=== PATIENT | female | born 1965 | race Caucasian/White ===

== ENCOUNTER → 2024-03-15 13:59 | Outpatient (REF) | payer OTHER, SELFPAY | LOC: HWRAD 13:59 | PROVIDERS: ATTENDING PHYSICIAN Family Medicine; FAMILY PHYSICIAN Physician Assistant | DX: Z87.442 Personal history of urinary calculi (principal); R10.9 Unspecified abdominal pain; R91.1 Solitary pulmonary nodule | CPT/HCPCS: 71250; 76770 ==

== ENCOUNTER → 2024-04-24 11:22 | Outpatient (REF) | payer OTHER, SELFPAY | LOC: RAD 11:22 | PROVIDERS: ATTENDING PHYSICIAN Surgery; FAMILY PHYSICIAN Physician Assistant | DX: N13.2 Hydronephrosis with renal and ureteral calculous obstruction (principal) | CPT/HCPCS: 74018 ==

== ENCOUNTER 2024-11-12 15:34 | Emergency (ER) | payer OTHER, SELFPAY ==
[2024-11-12 15:38] VITALS: BP 107/68
[2024-11-12 16:08] LABS: Urine Albumin Negative (Neg - Trace); Urine Bilirubin Negative (Negative); Urine Character Clear (Clear); Urine Color Yellow; Urine Glucose Negative (Negative); Urine Ketone Negative (Negative); Urine Leukocyte Trace (Negative); Urine Nitrite Negative (Negative); Urine Occult Blood 2+ (Negative); Urine Specific Gravity 1.025 (<1.030); Urine Urobilinogen Negative (Neg - 1+)
[2024-11-12 16:10] LABS: % Basophils 1.1 % (0-2); % Immature Granulocytes 0.1 % (0-0.5); % Lymphocytes 20.8 % (20.5-51.1); % Monocytes 9.6 % (1.7-9.3); % Neutrophils 65.4 % (42.2-75.2); Absolute Basophils 0.1 10^3/uL (0-0.2); Absolute Eosinophils 0.2 10^3/uL (0-0.7); Absolute Lymphocytes 1.5 10^3/uL (1.2-3.4); Absolute Monocytes 0.7 10^3/uL (0.1-0.6); Absolute Neutrophils 4.6 10^3/uL (1.4-6.5); Hematocrit 41.4 % (37.0-47.0); Hemoglobin 13.9 g/dL (12.0-16.0); Mean Corp Hgb Conc. 33.6 g/dL (33.0-37.0); Mean Corpuscular Hgb 29.6 pg (27.0-31.0); Mean Corpuscular Volume 88.1 fL (81.0-99.0); Mean Platelet Volume 10.1 fL (7.4-10.4); Nucleated Red Blood Cells % 0 %; Platelet Count 248 10^3/uL (130-400); Red Cell Dist. Width 12.4 % (11.5-14.5)
[2024-11-12 16:16] LABS: ALT (SGPT) 19 U/L (0-35); AST (SGOT) 21 U/L (14-36); Albumin 4.8 g/dl (3.5-5.0); Alkaline Phosphatase 85 U/L (38-126); Blood Urea Nitrogen 21 mg/dl (7-17); Calcium 9.8 mg/dl (8.4-10.2); Carbon Dioxide 28 mmol/L (22-30); Chloride 98 mmol/L (98-107); Glucose 106 mg/dl (70-99); Lipase 234 U/L (23-300); Potassium 4.2 mmol/L (3.5-5.1); Sodium 137 mmol/L (135-145); Total Bilirubin 0.3 mg/dl (0.2-1.3); Total Protein 7.4 g/dl (6.3-8.2); eGFR > 60.00
--- NOTE | 2024-11-12 16:20 | ED.GENMED ---
ED Provider Triage
<Marbella Bustamante BANK EXAMINER - Last Filed: 11/12/24 16:23>
-
Patient seen by provider in Triage?: Seen in Triage
Attestation: A medical screening examination has been initiated by a qualified medical provider. Based on the assessment performed at this time, it has been determined that an emergent medical condition may exist and the patient has been informed
that further medical evaluation and possible additional diagnostic testing may be needed.
HPI: 59-year-old female with history of kidney stones presents with right side abdominal pain that was right flank pain. Denies fever or chills.
GENERAL: Alert , in no apparent distress
EYE: No visual abnormalities.
ENT: No visible abnormalities.
LUNGS: No acute respiratory distress
NEUROLOGICAL: Alert and oriented
SKIN: Skin intact. No visible changes.
MUSCULOSKELETAL: Moving extremities normally
PSYCH: Normal and appropriate interaction.
This is a medical evaluation conducted in person to initiate diagnostic evaluation and provide initial therapeutics. Please see further documentation by the treating clinician.
History of Present Illness
<Marbella Bustamante BANK EXAMINER - Last Filed: 11/12/24 16:23>
General
Chief Complaint: Abdominal Pain
Time Seen by Provider: 11/12/24 18:36
<ENA Bonner - Last Filed: 11/12/24 19:05>
General
Source: patient
Exam Limitations: none
History of Present Illness
History of Present Illness:
This is a 59 year old female that comes in with c/o right flank and abd pain. States that this started about 3pm today but that she has some irritation like a kidney stone this morning. States that she took a Flomax that she had at home. States that
she then became nauseated and lightheaded. States that she took Tylenol 1000mg at 8am today. Denies any fever, chills, chest pain, SOB, vomiting, diarrhea, headache, urinary burning.
Past History
<Marbella Bustamante BANK EXAMINER - Last Filed: 11/12/24 16:23>
Past History
ED Past Medical History: GERD
ED Past Surgical History: None
Social History
Tobacco: Non-smoker
Alcohol: Occasional
<ENA Bonner - Last Filed: 11/12/24 19:05>
Past History
ED Past Medical History: Psychiatric (Depression) and Other (Renal calculus, )
ED Past Surgical History: Cholecystectomy and Other (ERCP for common bile duct stone)
Social History
Tobacco: Former smoker
Drug: None
Personal:
Living: with family
Review of Systems
<ENA Bonner - Last Filed: 11/12/24 19:05>
Review of Systems
All Other Systems: ROS reviewed and negative except as documented in HPI and ROS
Constitutional: Reports no symptoms; Denies fever or chills
EENT: Reports no symptoms
Respiratory: Reports no symptoms; Denies cough or trouble breathing
Cardiac: Reports no symptoms; Denies chest pain
ABD/GI: Reports abdominal pain and nausea; Denies vomiting or diarrhea
: Reports flank pain (right sided)
Musculoskeletal: Reports no symptoms
Skin: Reports no symptoms
Neurological: Reports other (Lightheaded); Denies dizzy or headache
Psychiatric: Reports no symptoms
Phy Exam
<ENA Bonner - Last Filed: 11/12/24 19:05>
General Physical Exam
General Presentation: no apparent distress
General age: appears stated age
General Skin: warm and dry
General Habitus: normal
General Mental: alert
General Hydration: appears well hydrated
ENT Exam
ENT Exam: TM's normal, pharynx normal and neck supple
Eye Exam
Eye Exam: EOMI
Cardiovascular Exam
Cardiovascular Exam: regular rate/rhythm, no edema, no murmur and normal peripheral pulses
Pulmonary Exam
Pulmonary Exam: lungs clear, no respiratory distress, no rales, chest non tender, no crackles, no rhonchi, no wheezing and no cough
Gastrointestinal Exam
Gastrointestinal Exam: normal bowel sounds, non tender, soft, no organomegaly, no pulsatile mass, non distended and no cva tenderness
Musculoskeletal Exam
Musculoskeletal Exam: full ROM and no edema
Skin Exam
Skin Exam: normal color, warm/dry, no rash and no petechia
Psychiatric Exam
Psychiatric Exam: normal mood/affect
Course
<Marbella Bustamante NP - Last Filed: 11/12/24 16:23>
Orders/Labs/Results
Orders:
Orders
11/12/24 15:53
Complete Blood Count/With Diff Urgent
Comprehensive Metabolic Panel Urgent
Lipase Urgent
Urinalysis Reflex To Culture Urgent
Date Specimen was Collected: 11/12/24
Time Specimen was Collected: 15:42
Urine Microscopic Reflex Cult Urgent
11/12/24 16:23
CT Abd/pel Without Iv Or Oral Urgent
Comment:
Reason For Exam: R flank and abd pain, hx stones
11/12/24 18:47
Oxycodone [Roxicodone] 10 mg PO NOW STA
Abnormal Lab Results
11/12/24
15:53
Absolute Monos (auto) 0.7 H 10^3/uL
(0.1-0.6)
Monocytes % 9.6 H %
(1.7-9.3)
BUN 21 H mg/dl
(7-17)
Glucose 106 H mg/dl
(70-99)
Ur Occult Blood Reflex 2+ A
(Negative)
Leukocyte Esterase Rfl Trace A
(Negative)
Urine RBC 7-10 A /HPF
(0-2)
Urine Bacteria (Reflex) Few A
(Negative)
11/12/24 15:53
11/12/24 15:53
Vital Signs
Initial and Last Documented VS:
Initial Vital Signs
Temp Pulse Resp BP Pulse Ox
98.0 F 71 16 107/68 100
11/12/24 15:38 11/12/24 15:38 11/12/24 15:38 11/12/24 15:38 11/12/24 15:38
Last Documented Vital Signs
Temp Pulse Resp BP Pulse Ox
98.0 F 71 16 107/68 100
11/12/24 15:38 11/12/24 15:38 11/12/24 15:38 11/12/24 15:38 11/12/24 15:38
<ENA Bonner - Last Filed: 11/12/24 19:05>
Orders/Labs/Results
Orders:
Orders
11/12/24 15:53
Complete Blood Count/With Diff Urgent
Comprehensive Metabolic Panel Urgent
Lipase Urgent
Urinalysis Reflex To Culture Urgent
Date Specimen was Collected: 11/12/24
Time Specimen was Collected: 15:42
Urine Microscopic Reflex Cult Urgent
11/12/24 16:23
CT Abd/pel Without Iv Or Oral Urgent
Comment:
Reason For Exam: R flank and abd pain, hx stones
11/12/24 18:47
Oxycodone [Roxicodone] 10 mg PO NOW STA
Abnormal Lab Results
11/12/24
15:53
Absolute Monos (auto) 0.7 H 10^3/uL
(0.1-0.6)
Monocytes % 9.6 H %
(1.7-9.3)
BUN 21 H mg/dl
(7-17)
Glucose 106 H mg/dl
(70-99)
Ur Occult Blood Reflex 2+ A
(Negative)
Leukocyte Esterase Rfl Trace A
(Negative)
Urine RBC 7-10 A /HPF
(0-2)
Urine Bacteria (Reflex) Few A
(Negative)
11/12/24 15:53
11/12/24 15:53
Slight Dehydration. Glucose nonfasting, Urine negative for infection but positive for blood, Lipase normal at 234
Vital Signs
Initial and Last Documented VS:
Initial Vital Signs
Temp Pulse Resp BP Pulse Ox
98.0 F 71 16 107/68 100
11/12/24 15:38 11/12/24 15:38 11/12/24 15:38 11/12/24 15:38 11/12/24 15:38
Last Documented Vital Signs
Temp Pulse Resp BP Pulse Ox
98.0 F 71 16 107/68 100
11/12/24 15:38 11/12/24 15:38 11/12/24 15:38 11/12/24 15:38 11/12/24 15:38
<ENA Bonner - Last Filed: 11/12/24 19:05>
MDM/Problems Addressed
Differential Diagnosis Includes:
Renal calculus
MDM/Problems Addressed:
This is a 59 year old female that comes in with c/o right flank and abd pain. States that she felt there was a little irritation in the morning but she started with pain around 3pm.
Will check labs and get CT scan. Will medicated for pain and nausea.
Explained to patient that she has a 3mm stone at the UVJ. Encouraged patient to increase her water intake to 8-8oz glasses daily. Patient can strain her urine. Use Tylenol 1000mg every 6 hours for pain and will give a narcotic pain medication as
patient states that she can't take Ibuprofen. Will also give a prescription for Zofran and have patient follow up with the Urologist. Patient to return for any concerns.
Chronic conditions affecting care:
Renal calculus
Acute Exacerbation and/or Progression of Chronic Illness:
Renal calculus
<ENA Bonner - Last Filed: 11/12/24 19:05>
*Radiology
Radiology exam reviewed: radiology read reviewed (CT- Approximate 3mm calculus at the right ureterovesical junction with mild right hydroureteronephrosis. Small bilateral nonobstructing renal calculi. Small bilateral low-attenuation renal lesions
only the larger of which can be confirmed as simple cyst. Small simple parapelvic left renal cysts ) and all reviewed NAD by ED Provider (CT cont- also noted. Unremarkable appendix. Prior cholecystectomy )
*Pulse Oximetry
Patient hypoxic: no
*EKG
Interpreted by ED Provider?: NA
Rate: EKG- N/A
*Shop Mechanic Interpretation
Rate: Shop Mechanic- N/A
*Critical Care Note
Total Time (30-74mins, 75-104mins- exclusive of procedures): Not Applicable
ED Attending Note
<Marbella Bustamante NP - Last Filed: 11/12/24 16:23>
-
Portions of this chart may have been created with voice recognition software.� Occasional wrong word or��sound alike� substitutions may have occurred due to the inherent limitations of voice recognition software.
Discharge Plan
Departure
Patient Disposition: Home (Routine Discharge)
Date of Disposition: 11/12/24
Time of Disposition: 18:58
Patient with high blood pressure during this ER visit?: No
Condition: Good
Covid-19: Not Applicable
Discharge Problem:
Renal calculus, right
Instructions: Renal Colic (DC), How to Strain Your Urine
Prescriptions:
New
tamsulosin [Flomax] 0.4 mg capsule
0.4 mg PO HS Qty: 7 0RF
ondansetron 4 mg tablet,disintegrating
4 mg PO Q8H PRN (Reason: nausea and vomiting) Qty: 7 0RF
oxycodone 5 mg capsule
5 mg PO Q6H PRN (Reason: Pain) Qty: 10 0RF
No Action
bupropion HCl [Wellbutrin XL] 300 mg Tablet Extended Release 24 Hr
300 mg PO DAILY
Referrals:
Benjamin Tobar MD [Active] - Follow up in 5-7 days
Activity Restrictions/Additional Instructions:
As discussed, you have a 3mm stone that is almost to the bladder. Please increase your water intake to 8-8oz glasses daily. You have had three prescriptions sent to your Pharmacy. The first is Zofran to help with any nausea/vomiting. The second is
Flomax that will relax the smooth muscle so you can pass the stone. The last is a narcotic pain medication for severe pain. This will make you tired. Please no driving or alcohol when taking. You may also use Tylenol 1000mg every 6 hours for lesser
pain. Follow up with the Urologist in about 5-7 days. Please strain your urine. IF YOU HAVE FEVER, OR ANY OTHER CONCERNS PLEASE RETURN TO THE EMERGENCY ROOM
Interventions
Interventions:
*Risk Screen - Suicide Last Done: 11/12/24 15:38
*General Assessment Last Done: 11/12/24 15:38
*Neglect/Abuse Screening Last Done: 11/12/24 15:38
Discharge Date and Time
Print Language: KAZAKH
[2024-11-12 16:38] LABS: Urine Mucus Moderate
[2024-11-12 16:39] LABS: Urine Bacteria Few (Negative); Urine White Cell 0-2 /HPF (0-5)
[2024-11-12 18:37] VITALS: BMI 33.0
--- NOTE | 2024-11-12 18:41 | EDRN ---
Marly SUTHERLAND in room w/ pt at this time.
[2024-11-12 18:52] VITALS: BP 89/61
[2024-11-12] MEDS: ROXICODONE 10 MG PO (19:05)
[2024-11-12] MEDS: ZOFRAN ODT (ORALLY DISINTEGRATING) 4 MG PO (19:05)
== END 2024-11-12 19:15 | disposition home or self-care (01) ==
LOC: EMR 15:34
PROVIDERS: Registered Nurse; EMERGENCY PHYSICIAN Student in an Organized Health Care Education/Training Program; FAMILY PHYSICIAN Physician Assistant
DX: N13.2 Hydronephrosis with renal and ureteral calculous obstruction (principal); K21.9 Gastro-esophageal reflux disease without esophagitis; Z90.49 Acquired absence of other specified parts of digestive tract
CPT/HCPCS: 99284; 74176; 80053; 81003; 81015; 83690; 85025

== ENCOUNTER → 2025-06-10 13:09 | Outpatient (REF) | payer OTHER, SELFPAY | LOC: HWRAD 13:09 | PROVIDERS: ATTENDING PHYSICIAN Family Medicine | DX: R91.1 Solitary pulmonary nodule (principal) | CPT/HCPCS: 71250 ==

== ENCOUNTER → 2025-10-04 07:39 | Outpatient (REF) | payer OTHER, SELFPAY | LOC: HWRAD 07:39 | PROVIDERS: ATTENDING PHYSICIAN Surgery; FAMILY PHYSICIAN Physician Assistant | DX: N20.0 Calculus of kidney (principal) | CPT/HCPCS: 76775 ==

== ENCOUNTER → 2025-10-28 15:12 | Outpatient (REF) | payer OTHER, SELFPAY | LOC: HWRAD 15:12 | PROVIDERS: ATTENDING PHYSICIAN Surgery; FAMILY PHYSICIAN Physician Assistant | DX: N20.0 Calculus of kidney (principal) | CPT/HCPCS: 74018 ==